=== PATIENT | male | born 2000 | race Caucasian/White ===

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

== ENCOUNTER 2020-06-11 07:15 | Emergency (ER) | payer SELFPAY ==
[~2020-06-11] VITALS: Ht 170.2 cm; Wt 58.0 kg
--- NOTE | 2020-06-11 07:33 | NUR ---
PATIENT WALKED BACK FROM TRIAGE WITH CHIEF C/O PERIUMBILICAL ABD PAIN X3-4 MONTHS. PER PATIENT PAIN IS GETTING WORSE. PATIENT DENIES CONSTIPATION, DENIES VOMITING AND DIARRHEA, REPORTS NAUSEA AND EXCESS GAS. PATIENT STATES BM'S ARE NORMAL. JOSEN, VSS, CALL LIGHT WITHIN REACH.
[2020-06-11] MEDS ORDERED: ONDANSETRON ODT 4 MG ONE (07:40)
[2020-06-11] MEDS ORDERED: MAALOX/HYOSCYAMINE/LIDOCAINE 45 ML BTL ONE (07:40)
--- NOTE | 2020-06-11 07:44 | NUR ---
URINE COLLECTED AND SENT TO LAB, PATIENT MEDICATED PER [facility], CONNECTED TO MONITORS, CALL LIGHT WITHIN REACH.
[2020-06-11 07:56] LABS: MICROSCOPIC NOT IND
[2020-06-11 07:58] LABS: BASOPHILS % (AUTO) 1 % (0-1); EOSINOPHILS % (AUTO) 1 % (1-7); LYMPHOCYTES % (AUTO) 31 % (22-44); MEAN CORPUSCULAR HEMOGLOBIN 29.9 pg (27.5-34.5); MEAN CORPUSCULAR HGB CONC 33.5 g/dL (33.2-36.2); MEAN PLATELET VOLUME 7.2 fL (7.4-10.4); MONOCYTES % (AUTO) 11 % (2-9); NEUTROPHILS % (AUTO) 57 % (42-75); PLATELET COUNT 222 x10^3/uL (130-400); RED CELL DISTRIBUTION WIDTH 15.4 % (9.4-14.8)
[2020-06-11] MEDS ORDERED: MAALOX/HYOSCYAMINE/LIDOCAINE 45 ML BTL PO ONE (08:00)
[2020-06-11] MEDS ORDERED: ONDANSETRON ODT 4 MG PO ONE (08:00)
[2020-06-11 08:05] LABS: MD NO
[2020-06-11 08:09] LABS: ALANINE AMINOTRANSFERASE 30 U/L (12-78); ALBUMIN 4.4 g/dL (3.4-5.0); ANION GAP 5 mmol/L (5-15); CALCIUM 9.1 mg/dL (8.5-10.1); CHLORIDE 104 mmol/L (98-107); CREATININE 0.88 mg/dL (0.7-1.3)
[2020-06-11 08:11] LABS: ALKALINE PHOSPHATASE 112 U/L (45-117); BILIRUBIN,TOTAL 0.9 mg/dL (0.2-1.0)
--- NOTE | 2020-06-11 09:25 | NUR ---
PATIENT SITTING IN [facility], GUILLERMO, CALL LIGHT WITHIN REACH. PATIENT UP FOR RECHECK.
[2020-06-11 09:31] VITALS: BP 115/50
--- NOTE | 2020-06-11 09:45 | NUR ---
Patient given discharge and instructions and prescription and they have confirmed that they understand the instructions. Patient stable and ambulatory with steady gait from ED to private vehicle.
== END 2020-06-11 09:46 | disposition home or self-care (01) ==
LOC: ED 08:41
DX: G89.29 Other chronic pain (principal); R10.9 Unspecified abdominal pain; R10.11 Right upper quadrant pain; K59.00 Constipation, unspecified; R11.0 Nausea
CPT/HCPCS: 36415; 76700; 80053; 81003; 83690; 85025; 99284; Q0162